=== PATIENT | male | born 1955 | race Caucasian/White ===

== ENCOUNTER 2019-01-08 18:55 | Observation (INO) | payer MEDICARE, BC ==
[2019-01-08] MEDS ORDERED: SODIUM CHLORIDE 0.9% 1,000 ML IV ONE (19:19)
--- NOTE | 2019-01-08 19:27 | ED ---
Recheck HPI - General Stated Complaint: OD Time Seen by Provider: 01/08/19 19:02 Source: RN notes reviewed, old records reviewed - History of Present Illness Initial Comments: This is a 63-year-old male the ER for evaluation. This patient presents today for evaluation regards to pain. Patient has generalized body pain. Patient presents as a transfer patient today. Patient was transferred to us from [facility] for evaluation regarding low blood pressure secondary to opiates. They put him on Narcan drip and sent to ER secondary low blood pressures MD Complaint: other (Evaluation of the tenderness in blood pressure secondary to opiates) -: unknown Returns Today for: other (low BP) Symptoms Since Prior Visit: no new symptoms Associated Symptoms: none - Related Data Home Medications Medication Instructions Recorded Confirmed Acetaminophen [Tylenol] 1,000 mg PO BID 08/29/15 08/31/15 Gabapentin [Neurontin] 1,800 mg PO BID 08/29/15 08/31/15 Insulin Detemir [Levemir Flextouch] 25 units SQ HS 08/29/15 08/31/15 Insulin Lispro [humaLOG] 0 units SQ TID-W/MEALS PRN 08/29/15 08/31/15 Metoprolol Tartrate [Lopressor] 25 mg PO BID 08/29/15 08/31/15 Ondansetron [Zofran] 4 mg PO Q12HR PRN 08/29/15 08/31/15 Ranitidine HCl [Zantac] 150 mg PO BID PRN 08/29/15 08/31/15 Stool Softner 1 tab PO DAILY 08/29/15 08/31/15 oxyCODONE HCL/ACETAMINOPHEN 1 tab PO Q6HR 08/29/15 08/31/15 [Percocet 7.5-325 mg] Atorvastatin Calcium [Lipitor] 80 mg PO HS 08/31/15 08/31/15 Isosorbide Mononitrate ER [Imdur] 30 mg PO DAILY 08/31/15 08/31/15 Allergies Allergy/AdvReac Type Severity Reaction Status Date / Time No Known Allergies Allergy Verified 08/29/15 10:31 Review of Systems ROS Statement: Those systems with pertinent positive or pertinent negative responses have been documented in the HPI. ROS Other: All systems not noted in ROS Statement are negative. Past Medical History Past Medical History: Chest Pain / Angina, Heart Failure, Diabetes Mellitus, Hyperlipidemia, Hypertension, Rheumatoid Arthritis (RA) Additional Past Medical History / Comment(s): SOB, hx intestinal blockage, History of Any Multi-Drug Resistant Organisms: None Reported Past Surgical History: Appendectomy, Joint Replacement, Orthopedic Surgery, Ton sillectomy Additional Past Surgical History / Comment(s): spinal pain stimulater, pain pump implated/later removed, rt knee partial replacement, left shoulder surgery, bone spurs left shoulder, Past Anesthesia/Blood Transfusion Reactions: No Reported Reaction Smoking Status: Former smoker - Past Family History Mother Family Medical History: No Reported History General Exam General appearance: alert, in no apparent distress Head exam: Present: atraumatic, normocephalic, normal inspection Eye exam: Present: normal appearance, PERRL, EOMI. Absent: scleral icterus, conjunctival injection, periorbital swelling ENT exam: Present: normal exam, mucous membranes moist Neck exam: Present: normal inspection. Absent: tenderness, meningismus, lymphadenopathy Respiratory exam: Present: normal lung sounds bilaterally. Absent: respiratory distress, wheezes, rales, rhonchi, stridor Cardiovascular Exam: Present: regular rate, normal rhythm, normal heart sounds. Absent: systolic murmur, diastolic murmur, rubs, gallop, clicks GI/Abdominal exam: Present: soft, normal bowel sounds. Absent: distended, tenderness, guarding, rebound, rigid Extremities exam: Present: normal inspection, full ROM, normal capillary refill. Absent: tenderness, pedal edema, joint swelling, calf tenderness Back exam: Present: normal inspection Neurological exam: Present: alert, oriented X3, CN II-XII intact Psychiatric exam: Present: normal affect, normal mood Skin exam: Present: warm, dry, intact, normal color. Absent: rash Course - Reevaluation(s) Reevaluation #1: 01/08/19 19:24 Medical and transferring paperwork are reviewed Reevaluation #2: 01/08/19 19:24 Patient complaining of generalized pain Medical Decision Making - Medical Decision Making 63 male with unintentional overdose secondary to pain pump, dosage to high. Patient be admitted for monitoring of pain pump dosage and evaluation by anesthesiology Disposition Clinical Impression: Overdose Narrative: Pain Pump Overdose [facility] Condition: Fair Is patient prescribed a controlled substance at d/c from ED?: No Referrals: None,Stated [Primary Care Provider] - 1-2 days
[2019-01-08] MEDS ORDERED: GABAPENTIN 300 MG CAP PO STA (20:44)
[2019-01-08 21:07] LABS: Glucose,Whole Blood 201 mg/dL (75-99)
[2019-01-08 21:16] VITALS: BMI 34.5
[2019-01-08] MEDS ORDERED: LORazepam 1 MG TAB PO PRN (21:17)
[2019-01-08] MEDS ORDERED: MAGNESIUM HYDROXIDE 2,400 MG/10 ML CUP PO PRN (21:17)
[2019-01-08] MEDS ORDERED: ONDANSETRON 4 MG TAB PO PRN (21:17)
--- NOTE | 2019-01-08 21:25 | P.PAINCN ---
History of Present Illness - Reason for Consult Consult date: 01/08/19 - Chief Complaint Intrathecal pump potential overdose. - History of Present Illness 63-year-old male who was a patient of Dr. Monzon. He follows up with him with regards to intrathecal pump that was implanted some years ago. Over the past 4 weeks patient has been in outpatient rehabilitation Center because of lower extremity weakness and difficulty with mobility. His intrathecal pump contains morphine only, and about 1-2 weeks ago it was dry. Someone from Dr. Monzon's office came and filled with saline, than last week he was at the office to have it filled on or Friday. Over the past week has been feeling dizzy and lightheaded. Per his is having lower than normal blood pressure. He's taken to the emergency department and given multiple doses of Narcan. His blood pressure improved after the dosing of Narcan, its unsure exactly how much was given as it was done at a different facility. I was contacted by the emergency room physician while this patient was still at another facility seeing if I would be able to interrogate and manage his pump. He denies any altered mental status, lethargy, diaphoresis, withdrawal symptoms, respiratory depression, constipation, or diarrhea. Pump interrogation was done which showed morphine 25 mg per mL, patient was receiving 1.2 mg/day. This equates to roughly 360 mg oral of morphine. Maps was reviewed, did not show any previous prescriptions in the amount being delivered intrathecally. Past Medical History Past Medical History: Chest Pain / Angina, Heart Failure, Diabetes Mellitus, Hyperlipidemia, Hypertension, Rheumatoid Arthritis (RA) Additional Past Medical History / Comment(s): SOB, hx intestinal blockage, History of Any Multi-Drug Resistant Organisms: None Reported Past Surgical History: Appendectomy, Joint Replacement, Orthopedic Surgery, Tonsillectomy Additional Past Surgical History / Comment(s): spinal pain stimulater, pain pump implated/later removed, rt knee partial replacement, left shoulder surgery, bone spurs left shoulder, Past Anesthesia/Blood Transfusion Reactions: No Reported Reaction Smoking Status: Former smoker - Past Family History Mother Family Medical History: No Reported History Medications and Allergies Home Medications Medication Instructions Recorded Confirmed Type Acetaminophen [Tylenol] 1,000 mg PO Q6H PRN 08/29/15 01/08/19 History Gabapentin [Neurontin] 600 mg PO BID@0700,1900 08/29/15 01/08/19 History Metoprolol Tartrate [Lopressor] 25 mg PO BID@0700,1700 08/29/15 01/08/19 History Ondansetron [Zofran] 4 mg PO Q12HR PRN 08/29/15 01/08/19 History Isosorbide Mononitrate ER [Imdur] 30 mg PO DAILY@0700 08/31/15 01/08/19 History Aspirin EC [Ecotrin Low Dose] 81 mg PO DAILY@0700 01/08/19 01/08/19 History Celecoxib [CeleBREX] 100 mg PO DAILY@0700 01/08/19 01/08/19 History Insulin Lispro [humaLOG Kwikpen] See Protocol SQ ACHS@07,,,01/08/1901/08 History LORazepam [Ativan] 1 mg PO TID PRN 01/08/19 01/08/19 History Lisinopril [Zestril] 5 mg PO DAILY@0700 01/08/19 01/08/19 History Magnesium Hydroxide [Milk of 2,400 mg PO DAILY PRN 01/08/19 01/08/19 History Magnesia] Mirtazapine [Remeron] 15 mg PO HS 01/08/19 01/08/19 History Na Phos,M-B/Na Phos,Di-Ba [Fleet 1 dose RECTAL Q72H PRN 01/08/19 01/08/19 History Adult] Nystatin 100,000 Unit/gm Oint 1 applic TOPICAL BID 01/08/19 01/08/19 History [Mycostatin Oint] Omeprazole 20 mg PO DAILY@0500 01/08/19 01/08/19 History Polyethylene Glycol 3350 17 gm PO DAILY@0700 01/08/19 01/08/19 History Potassium Chloride ER [K-Dur 20] 20 meq PO BID@0700,2100 01/08/19 01/08/19 History cloNIDine [Catapres-TTS] 1 patch TRANSDERM FORREST 01/08/19 01/08/19 History levETIRAcetam [Keppra] 250 mg PO BID@0700,1700 01/08/19 01/08/19 History Allergies Allergy/AdvReac Type Severity Reaction Status Date / Time No Known Allergies Allergy Verified 01/08/19 19:38 Physical Exam Vitals: Vital Signs Temp Pulse Resp BP Pulse Ox 01/08/19 20:51 90 18 133/75 99 01/08/19 20:00 98.1 F 95 20 113/62 99 01/08/19 19:10 98.5 F 88 20 142/80 96 Intake and Output 01/08/19 01/08/19 01/08/19 06:59 14:59 22:59 Output Total 1600 Balance -1600 Output: Urine 1600 Other: Weight 115.666 kg - Constitutional General appearance: morbidly obese - EENT Eyes: PERRLA - Respiratory Respiratory: bilateral: CTA, negative: wheezing - Cardiovascular Rhythm: regular Heart sounds: normal: S1, S2 - Integumentary Integumentary: normal, normal turgor - Psychiatric Psychiatric: A&O x's 3, appropriate affect, intact judgment & insight Assessment and Plan Assessment: Assessment: 1. Possible opioid overdose via intrathecal route. 2. Peripheral neuropathy 3. Lumbar spondylosis 4. Lumbar postlaminectomy syndrome Plan: 1. After interrogating intrathecal pump patient was getting 360 mg of morphine a day (1.2mg/day). Per his history, he has never been prescribed dosages of this amount. 2. Decreased pump to minimal settings of 0.15 mg a day of morphine. Discussed with the ER physician to admit for observation overnight to stop the Narcan infusion that he was getting. Also he will need to be prescribed some oral opiates as an outpatient to avoid significant withdrawal symptoms, also clonidine patches. 3. I advised patient to follow up with Dr. Monzon to adjust his dose. PQRS Measure Charge Sheet PQRS Narrative: Smoking Status Former smoker Blood Pressure 133/75 Pain Intensity 7 Scale Used Numeric (1 - 10) Home Medications: Ambulatory Orders Acetaminophen [Tylenol] 1,000 mg PO Q6H PRN 08/29/15 Gabapentin [Neurontin] 600 mg PO BID@0700,1900 08/29/15 Metoprolol Tartrate [Lopressor] 25 mg PO BID@0700,1700 08/29/15 Ondansetron [Zofran] 4 mg PO Q12HR PRN 08/29/15 Isosorbide Mononitrate ER [Imdur] 30 mg PO DAILY@0700 08/31/15 Aspirin EC [Ecotrin Low Dose] 81 mg PO DAILY@0700 01/08/19 Celecoxib [CeleBREX] 100 mg PO DAILY@0701/08/19 Insulin Lispro [humaLOG Kwikpen] See Protocol SQ ACHS@07,12,17,01/08/19 LORazepam [Ativan] 1 mg PO TID PRN 01/08/19 Lisinopril [Zestril] 5 mg PO DAILY@0701/08/19 Magnesium Hydroxide [Milk of Magnesia] 2,400 mg PO DAILY PRN 01/08/19 Mirtazapine [Remeron] 15 mg PO HS 01/08/19 Na Phos,M-B/Na Phos,Di-Ba [Fleet Adult] 1 dose RECTAL Q72H PRN 01/08/19 Nystatin 100,000 Unit/gm Oint [Mycostatin Oint] 1 applic TOPICAL BID 01/08/19 Omeprazole 20 mg PO DAILY@0500 01/08/19 Polyethylene Glycol 3350 17 gm PO DAILY@0701/08/19 Potassium Chloride ER [K-Dur 20] 20 meq PO BID@0700,2100 01/08/19 cloNIDine [Catapres-TTS] 1 patch TRANSDERM FORREST 01/08/19 levETIRAcetam [Keppra] 250 mg PO BID@0700,1700 01/08/19
[2019-01-08] MEDS ORDERED: MIRTAZAPINE 15 MG TAB PO SCH (21:30)
[2019-01-08] MEDS: INSULIN ASPART (NovoLOG) 100 UNIT/ML VIAL SQ SCH (21:32)
[2019-01-08] MEDS: NYSTATIN 100,000 UNIT/GM OINT 30 GM TUBE TOPICAL SCH (21:56)
[2019-01-08] MEDS: ACETAMINOPHEN TAB 500 MG TAB PO PRN (23:11)
--- NOTE | 2019-01-08 23:28 | P.HPIM ---
History of Present Illness H&P Date: 01/08/19 Chief Complaint: hypotension 63-year-old male with history of chronic pain syndrome status post intrathecal morphine pump Patient was transferred to our facility from [facility]. Patient is currently a retirement resident for rehab post her long hospitalization se condary to sepsis in December 2018. Patient has chronic pain syndrome and has intrathecal pain pump which has been adjusted recently. Patient sees Dr. Monzon as an outpatient. Patient is a very poor historian history is obtained by reviewing medical records and speaking with family SS like since pain pump was adjusted and refilled recently patient has been having low blood pressure readings today he was sent to the hospital due to systolic blood pressure in the 60s patient responded to a dose of Narcan(unknown amount at this time) which helped with his breathing and blood pressure. His neurologist was contacted and recommended that he goes to our facility for evaluation. Patient was evaluated by anesthesia in the ED who found that the pump is set up at 1.2 mg of morphine intrathecally per day this has been adjusted to the lowest setting of 0.15 mg per day patient was admitted for further monitoring overnight Currently patient denies any pain, he reports some discomfort in his lower legs but tolerable. Denies any dizziness lightheadedness chest pain trouble breathing fevers or chills. Review of Systems Pertinent positives as noted in HPI. All other systems were reviewed and are negative Past Medical History Past Medical History: Chest Pain / Angina, Heart Failure, Diabetes Mellitus, Hyperlipidemia, Hypertension, Rheumatoid Arthritis (RA) Additional Past Medical History / Comment(s): SOB, hx intestinal blockage, History of Any Multi-Drug Resistant Organisms: None Reported Past Surgical History: Appendectomy, Joint Replacement, Orthopedic Surgery, Tonsillectomy Additional Past Surgical History / Comment(s): spinal pain stimulater, pain pump implated/later removed, rt knee partial replacement, left shoulder surgery, bone spurs left shoulder, Past Anesthesia/Blood Transfusion Reactions: No Reported Reaction Smoking Status: Former smoker - Past Family History Mother Family Medical History: No Reported History Additional Family Medical History / Comment(s): heart problems Father Additional Family Medical History / Comment(s): parkinsons Medications and Allergies Home Medications Medication Instructions Recorded Confirmed Type Acetaminophen [Tylenol] 1,000 mg PO Q6H PRN 08/29/15 01/08/19 History Gabapentin [Neurontin] 600 mg PO BID@00,1900 08/29/15 01/08/19 History Metoprolol Tartrate [Lopressor] 25 mg PO BID@0700,1700 08/29/15 01/08/19 History Ondansetron [Zofran] 4 mg PO Q12HR PRN 08/29/15 01/08/19 History Isosorbide Mononitrate ER [Imdur] 30 mg PO DAILY@0700 08/31/15 01/08/19 History Aspirin EC [Ecotrin Low Dose] 81 mg PO DAILY@0700 01/08/19 01/08/19 History Celecoxib [CeleBREX] 100 mg PO DAILY@0700 01/08/19 01/08/19 History Insulin Lispro [humaLOG Kwikpen] See Protocol SQ ACHS@07,12,17,01/08/19 01/08/19 History LORazepam [Ativan] 1 mg PO TID PRN 01/08/19 01/08/19 History Lisinopril [Zestril] 5 mg PO DAILY@0700 01/08/19 01/08/19 History Magnesium Hydroxide [Milk of 2,400 mg PO DAILY PRN 01/08/19 01/08/19 History Magnesia] Mirtazapine [Remeron] 15 mg PO HS 01/08/19 01/08/19 History Na Phos,M-B/Na Phos,Di-Ba [Fleet 1 dose RECTAL Q72H PRN 01/08/19 01/08/19 History Adult] Nystatin 100,000 Unit/gm Oint 1 applic TOPICAL BID 01/08/19 01/08/19 History [Mycostatin Oint] Omeprazole 20 mg PO DAILY@0500 01/08/19 01/08/19 History Polyethylene Glycol 3350 17 gm PO DAILY@0700 01/08/19 01/08/19 History Potassium Chloride ER [K-Dur 20] 20 meq PO BID@0700,2100 01/08/19 01/08/19 History cloNIDine [Catapres-TTS] 1 patch TRANSDERM FORREST 01/08/19 01/08/19 History levETIRAcetam [Keppra] 250 mg PO BID@0700,1700 01/08/19 01/08/19 History Allergies Allergy/AdvReac Type Severity Reaction Status Date / Time No Known Allergies Allergy Verified 01/08/19 19:38 Physical Exam Vitals: Vital Signs Temp Pulse Pulse Resp BP BP Pulse Ox 01/08/19 21:12 98.1 F 91 17 99/65 95 01/08/19 21:01 98.6 F 89 16 99/65 94 L 01/08/19 20:51 90 18 133/75 99 01/08/19 20:00 98.1 F 95 20 113/62 99 01/08/19 19:10 98.5 F 88 20 142/80 96 Intake and Output 01/08/19 01/08/19 01/08/19 06:59 14:59 22:59 Output Total 1600 Balance -1600 Output: Urine 1600 Other: Weight 115.666 kg Constitutional: No acute distress, conversant, pleasant Eyes: Anicteric sclerae, moist conjunctiva, no lid-lag Pupils equal round reactive to light ENMT: NC/AT Oropharynx clear, no erythema, exudates Neck: Supple, FROM, no masses, or JVD No carotid bruits No thyromegaly Lungs: Clear to auscultation Clear to percussion Normal respiratory effort, no accessory muscle use Cardiovascular: Heart regular in rate and rhythm, No murmurs, gallops, or rubs No peripheral edema Abdominal: Soft Nontender, no guarding, rebound or rigidity Abdomen moving with respiration Normoactive bowel sounds No hepatomegaly, No splenomegaly No palpable mass No abdominal wall hernia noted Skin: Normal temperature, tone, texture, turgor No induration No subcutaneous nodules No rash, lesions No ulcers Extremities: No digital cyanosis No clubbing Pedal pulses intact and symmetrical Radial pulses intact and symmetrical No calf tenderness Psychiatric: Alert and oriented to person, place and time Appropriate affect fair judgment Neuro Muscles Strength 4/5 in all 4 extremities Sensation to light touch grossly present throughout Cranial nerves II-XII grossly intact No focal sensory deficits Lymphatics: no palpable cervical or supraclavicular , or inguinal lymph nodes Results Labs: Abnormal Lab Results - Last 24 Hours (Table) 01/08/19 Range/Units 21:04 POC Glucose (mg/dL) 201 H (75-99) mg/dL Thrombosis Risk Factor Assmnt - Choose All That Apply Any of the Below Risk Factors Present?: No Other Risk Factors: No Each Risk Factor Represents 2 Points: Age 61-74 years Thrombosis Risk Factor Assessment Total Risk Factor Score: 2 Thrombosis Risk Factor Assessment Level: Very Low Risk Assessment and Plan Assessment: 63-year-old male with chronic pain syndrome patient has intrathecal morphine pump. Admitted under observation with anticipated length of stay less than 48 hours for intrathecal opiate overdose resulting in hypotension symptomatic patient nurse and home resident pain pump has been adjusted by anesthesiology patient admitted for monitoring overnight Plan: Intrathecal opiate overdose resulting in hypotension Chronic pain syndrome status post intrathecal pain pump Pain pump was adjusted by anesthesia, currently at low setting 0.15 mg per day of morphine outpaitnet follow up with neurology monitoring overnight Fall precautions Chronic conditions History of epilepsy continue Keppra History of hypertension continue with home meds Diabetes mellitus insulin sliding scale Difficulty ambulating patient is a retirement resident at this time for rehab DVT prophylaxis heparin subcu 3 times a day Surrogate decision-maker: Patient CODE STATUS full code Discussed with: Patient, ER, RN Anticipated discharge: Less than [address]: Back to retirement A total of 60 minutes was spent on the care of this complex patient more than 50% of the time was spent in counseling and care coordination.
[2019-01-09] MEDS: ACETAMINOPHEN TAB 500 MG TAB PO PRN ×2 (04:07→10:26)
[2019-01-09] MEDS ORDERED: PANTOPRAZOLE 40 MG TABLET PO SCH (05:00)
[2019-01-09 06:32] LABS: African American GFR (CKD) >90 (>60 ml/min/1.73 sqM); Anion Gap 8 mmol/L; Carbon Dioxide 17 mmol/L (22-30); Chloride 109 mmol/L (98-107); Glucose 156 mg/dL (74-99); Sodium 134 mmol/L (137-145)
[2019-01-09 06:38] LABS: Glucose,Whole Blood 169 mg/dL (75-99)
[2019-01-09 06:41] LABS: Blood Urea Nitrogen 33 mg/dL (9-20); Potassium 5.6 mmol/L (3.5-5.1)
[2019-01-09] MEDS ORDERED: ISOSORBIDE MONONITRATE ER 30 MG TAB.ER.24H PO SCH (07:00)
[2019-01-09] MEDS ORDERED: MELOXICAM 7.5 MG TAB PO SCH (07:00)
[2019-01-09] MEDS ORDERED: POTASSIUM CHLORIDE ER 20 MEQ TAB.ER PO SCH (07:00)
[2019-01-09] MEDS ORDERED: levETIRAcetam 250 MG TAB PO SCH (07:00)
[2019-01-09] MEDS ORDERED: METOPROLOL TARTRATE 25 MG TAB PO SCH (07:00)
[2019-01-09] MEDS ORDERED: GABAPENTIN 300 MG CAP PO SCH (07:00)
[2019-01-09] MEDS ORDERED: ASPIRIN 81 MG PO SCH (07:00)
[2019-01-09] MEDS ORDERED: LISINOPRIL 5 MG TAB PO SCH (07:00)
[2019-01-09] MEDS ORDERED: INSULIN ASPART (NovoLOG) 100 UNIT/ML VIAL SQ SCH (07:30)
[2019-01-09] MEDS: INSULIN ASPART (NovoLOG) 100 UNIT/ML VIAL SQ SCH ×2 (07:47→12:10)
[2019-01-09] MEDS: NYSTATIN 100,000 UNIT/GM OINT 30 GM TUBE TOPICAL SCH (07:48)
[2019-01-09] MEDS ORDERED: HEPARIN SODIUM,PORCINE 5,000 UNIT/ML 1 ML VIAL SQ SCH (08:00)
[2019-01-09 11:30] LABS: Glucose,Whole Blood 189 mg/dL (75-99)
[2019-01-09 12:14] VITALS: BP 88/52; PULSE 69; RESP 18; TEMP 98.4
--- NOTE | 2019-01-09 14:06 | P.DS ---
Providers Date of admission: 01/08/19 19:19 Expected date of discharge: 01/09/19 Attending physician: Kaiser Wheat MD Consults: 01/08/19 19:19 Consult Physician Routine Consulting Provider: Avel Hoyos Consult Reason/Comments: pain Do you want consulting provider notified?: Yes Primary care physician: [facility] Course: 63-year-old male with history of chronic pain syndrome status post intrathecal morphine pump. Patient was transferred to our facility from [facility]. Patient is currently a penitentiary resident for rehab post his long hospitalization se condary to sepsis in December 2018. Patient has chronic pain syndrome and has intrathecal pain pump which has been adjusted recently. Patient sees Dr. Monzon as an outpatient. Pain pump was adjusted and refilled recently patient has been having low blood pressure readings today he was sent to the hospital due to systolic blood pressure in the 60s. Patient responded to a dose of Narcan (unknown amount at this time) which helped with his breathing and blood pressure. His neurologist was contacted and recommended that he goes to our facility for evaluation. Patient was evaluated in the ED by anesthesia and the intrathecal pump was interrogated, 1.2 mg per day. The settings were readjusted to the lowest dose of 0.15 mg per day. Patient was seen and examined prior to discharge. No acute events overnight. Patient reports no dizziness, chest pain, shortness of breath or palpitations. States that he would like to go back to his ECF. General: [non toxic], [no distress], [appears at stated age] Derm: [warm], [dry] Head: [atraumatic], [normocephalic], [symmetric] Eyes: [EOMI], [no lid lag], [anicteric sclera] Mouth: [no lip lesion], [mucus membranes moist] Cardiovascular: [S1S2 reg], [no murmur], [positive DP pulse bilateral] Lungs: [CTA bilateral], [no rhonchi, no rales] , [no accessory muscle use] Abdominal: [soft], [ nontender to palpation], [no guarding], [no appreciable organomegaly] Ext: [no gross muscle atrophy], [no edema], [no contractures] Neuro: [no focal neuro deficits] Psych: [Alert], [oriented], [appropriate affect] Intrathecal opiate overdose resulting in hypotension Chronic pain syndrome status post intrathecal pain pump Chronic conditions: History of epilepsy, hypertension, diabetes mellitus Blood pressure is improved. Intrathecal pain pump interrogated by anesthesia in the ED, dose readjusted to the lowest possible dose of 0.15 mg per day. Patient will need to follow-up with neurology Dr. Monzon in the outpatient setting for readjustment. Patient would like to go back to [facility] and we will DC the patient today. Patient Condition at Discharge: Stable Plan - Discharge Summary Discharge Rx Participant: No New Discharge Prescriptions: Continue Acetaminophen [Tylenol] 1,000 mg PO Q6H PRN PRN Reason: Pain Gabapentin [Neurontin] 600 mg PO BID@0700,1900 Ondansetron [Zofran] 4 mg PO Q12HR PRN PRN Reason: Nausea Metoprolol Tartrate [Lopressor] 25 mg PO BID@0700,1700 Isosorbide Mononitrate ER [Imdur] 30 mg PO DAILY@0700 Na Phos,M-B/Na Phos,Di-Ba [Fleet Adult] 1 dose RECTAL Q72H PRN PRN Reason: Constipation Magnesium Hydroxide [Milk of Magnesia] 2,400 mg PO DAILY PRN PRN Reason: Constipation LORazepam [Ativan] 1 mg PO TID PRN PRN Reason: Anxiety Insulin Lispro [humaLOG Kwikpen] See Protocol SQ ACHS@07,12,17,21 Nystatin 100,000 Unit/gm Oint [Mycostatin Oint] 1 applic TOPICAL BID levETIRAcetam [Keppra] 250 mg PO BID@0700,1700 Mirtazapine [Remeron] 15 mg PO HS Polyethylene Glycol 3350 17 gm PO DAILY@0700 Omeprazole 20 mg PO DAILY@0500 Lisinopril [Zestril] 5 mg PO DAILY@0700 Celecoxib [CeleBREX] 100 mg PO DAILY@0700 cloNIDine [Catapres-TTS] 1 patch TRANSDERM FORREST Aspirin EC [Ecotrin Low Dose] 81 mg PO DAILY@0700 Discontinued Potassium Chloride ER [K-Dur 20] 20 meq PO BID@0700,2100 Discharge Medication List Acetaminophen [Tylenol] 1,000 mg PO Q6H PRN 08/29/15 [History] Gabapentin [Neurontin] 600 mg PO BID@0700,1900 08/29/15 [History] Metoprolol Tartrate [Lopressor] 25 mg PO BID@0700,1700 08/29/15 [History] Ondansetron [Zofran] 4 mg PO Q12HR PRN 08/29/15 [History] Isosorbide Mononitrate ER [Imdur] 30 mg PO DAILY@0700 08/31/15 [History] Aspirin EC [Ecotrin Low Dose] 81 mg PO DAILY@0700 01/08/19 [History] Celecoxib [CeleBREX] 100 mg PO DAILY@0700 01/08/19 [History] Insulin Lispro [humaLOG Kwikpen] See Protocol SQ ACHS@07,12,17,21 01/08/19 [History] LORazepam [Ativan] 1 mg PO TID PRN 01/08/19 [History] Lisinopril [Zestril] 5 mg PO DAILY@0700 01/08/19 [History] Magnesium Hydroxide [Milk of Magnesia] 2,400 mg PO DAILY PRN 01/08/19 [History] Mirtazapine [Remeron] 15 mg PO HS 01/08/19 [History] Na Phos,M-B/Na Phos,Di-Ba [Fleet Adult] 1 dose RECTAL Q72H PRN 01/08/19 [Histor y] Nystatin 100,000 Unit/gm Oint [Mycostatin Oint] 1 applic TOPICAL BID 01/08/19 [History] Omeprazole 20 mg PO DAILY@0500 01/08/19 [History] Polyethylene Glycol 3350 17 gm PO DAILY@0701/08/19 [History] cloNIDine [Catapres-TTS] 1 patch TRANSDERM FORREST 01/08/19 [History] levETIRAcetam [Keppra] 250 mg PO BID@0700,1700 01/08/19 [History] Follow up Appointment(s)/Referral(s): None,Stated [REFERRING] - 1-2 days Franca Monzon MD [Medical Doctor] - 1 Week Ambulatory/Diagnostic Orders: Basic Metabolic Panel [LAB.AMB] Time Frame: 1 Day, Location: None Selected Activity/Diet/Wound Care/Special Instructions: Diet: Heart healthy Follow-up PCP within 1-2 days of discharge. Follow-up with neurology Dr. Monzon within 1 week of discharge. Discharge Disposition: TRANSFER TO SNF/ECF
[2019-01-10] MEDS ORDERED: cloNIDine 0.2 MG/24HR PATCH TRANSDERM SCH (09:00)
== END 2019-01-09 15:34 ==
LOC: EC 18:55 → 1SOBS 19:19
PROVIDERS: ADMIT Internal Medicine; ATTEND Internal Medicine
DX: T40.601A Poisoning by unspecified narcotics, accidental (unintentional), initial encounter (principal); I95.2 Hypotension due to drugs; G89.4 Chronic pain syndrome; R26.2 Difficulty in walking, not elsewhere classified; I11.0 Hypertensive heart disease with heart failure; I50.9 Heart failure, unspecified; E11.42 Type 2 diabetes mellitus with diabetic polyneuropathy; G40.909 Epilepsy, unspecified, not intractable, without status epilepticus; M06.9 Rheumatoid arthritis, unspecified; E78.5 Hyperlipidemia, unspecified; Z86.19 Personal history of other infectious and parasitic diseases; Z87.891 Personal history of nicotine dependence; Z97.8 Presence of other specified devices; E66.01 Morbid (severe) obesity due to excess calories; Z68.34 Body mass index [BMI] 34.0-34.9, adult; M47.9 Spondylosis, unspecified; M96.1 Postlaminectomy syndrome, not elsewhere classified; Z79.891 Long term (current) use of opiate analgesic; Z79.899 Other long term (current) drug therapy; Z79.1 Long term (current) use of non-steroidal anti-inflammatories (NSAID); Z79.4 Long term (current) use of insulin; Z79.82 Long term (current) use of aspirin; Z82.0 Family history of epilepsy and other diseases of the nervous system
CPT/HCPCS: 96372; 99285; 80048; 84132; G0378 ×2; J1644

== ENCOUNTER → 2020-11-17 | Outpatient (CLI) | payer MEDICARE, BC ==
[2020-11-17 16:07] LABS: HCT 41.4 % (39.6-50.0); HGB 13.1 g/dL (13.0-17.0); MCH 34.5 pg (27.0-32.0); MCHC 31.6 g/dL (32.0-37.0); MCV 108.9 fL (80.0-97.0); Mean Platelet Volume 9.5 fL (9.5-12.2); Platelet Count 130 X 10*3/uL (140-440); RDW 13.3 % (11.5-14.5); WBC 3.97 X 10*3/uL (4.50-10.00)
[2020-11-17 16:15] LABS: % Iron Saturation 28.38 (15.00-50.00); African American GFR (CKD) 123.1 (60.0-200.0); Albumin 4.1 g/dL (3.80-4.90); Albumin/Globulin Ratio 2.28 (1.60-3.17); Anion Gap 12.5 mmol/L (4.00-12.00); BUN/Creat Ratio 28.33 Ratio (12.00-20.00); Calcium 8.7 mg/dL (8.7-10.3); Carbon Dioxide 26.5 mmol/L (21.6-31.8); Globulin 1.8 g/dL (1.6-3.3); Non-African American GFR(CKD) 106.3 (60.0-200.0); Potassium 4.6 mmol/L (3.5-5.5); Total Bilirubin 0.4 mg/dL (0.2-1.2); Total Protein 5.9 g/dL (6.2-8.2)
[2020-11-17 16:23] LABS: Ferritin 89.4 ng/mL (22.0-322.0)
[2020-11-17 17:46] LABS: Hemoglobin A1C 8.1 % (4.0-6.0)
== END | disposition home or self-care (01) ==
LOC: LABWHC1 08:10
PROVIDERS: ATTEND Psychiatry & Neurology Pain Medicine
DX: R53.83 Other fatigue (principal)
CPT/HCPCS: 36415; 80053; 82550; 82728; 83036; 83540; 83550; 84439; 84443; 84466; 84481; 85027

== ENCOUNTER → 2020-11-29 | Outpatient (CLI) | payer MEDICARE, BC ==
--- NOTE | 2020-11-29 10:53 | CT ---
EXAMINATION TYPE: CT lumbar spine wo con DATE OF EXAM: 11/29/2020 COMPARISON: None HISTORY: 65-year-old male M54.5, lumbar spine pain, unavailable. TECHNIQUE: Contiguous axial scanning of the lumbar spine without IV contrast. Coronal and sagittal re constructions performed. CT DLP: 1928.50 mGycm Automated exposure control for dose reduction was used. FINDINGS: Cysts within the kidneys measuring up to 3.8 cm on the right. Mild to moderate macroscopic calcificat ions infrarenal abdominal aorta and common iliac arteries. There appears to be a component of congenital spinal canal stenosis with AP canal dimension of 1.1 cm . Moderate to advanced disc/endplate degenerative changes present with narrowing and desiccated discs a t multiple levels as well as disc bulging, ligamentum flavum thickening, and facet arthropathy. Generator device right posterior lower back. Its lead extends superiorly beyond the [id number]. There is also a thin lead entering the spinal canal through the L3-L4 intralaminar space and tip term inating at the T11 level. Trace grade 1 retrolisthesis at L4-L5. Remaining alignment is maintained. Vertebral body heights are preserved. Suspect moderate to severe spinal canal stenoses at L1-L2, L2-L3, L3-L4 secondary to the superimposed disc bulges. Probable moderate narrowing of the spinal canal at L4-L5 and mild at L5-S1. On the left, moderate to severe neural foraminal stenosis at L2-L3 and L5-S1. Moderate at L3-L4 and L 4-L5. On the right, moderate to severe neural foraminal stenosis at L3-L4 and moderate at additional levels . IMPRESSION: 1. 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 DEGENERATIVE GRADE 1 RETROLISTHESIS L4-L5. 2. THERE MAY BE MODERATE TO SEVERE SPINAL CANAL STENOSES AT L1-L2, L2-L3, L3-L4. POSSIBLE MODERATE AT L4-L5 AND MILD AT L5-S1. 3. VARIABLE BILATERAL NEURAL FORAMINAL STENOSES OUTLINED ABOVE. 4. A THIN STIMULATOR LEAD ENTERING THE L3-L4 INTERLAMINAR SPACE WITH TIP TERMINATING AT THE T11 LEVEL AND THE SPINAL CANAL.
== END | disposition home or self-care (01) ==
LOC: RADCTMAIN 09:05
PROVIDERS: ATTEND Psychiatry & Neurology Neurology
DX: M48.061 Spinal stenosis, lumbar region without neurogenic claudication (principal); M51.36 Other intervertebral disc degeneration, lumbar region; M99.73 Connective tissue and disc stenosis of intervertebral foramina of lumbar region; M43.16 Spondylolisthesis, lumbar region
CPT/HCPCS: 72131

== ENCOUNTER → 2021-12-06 | Outpatient (CLI) | payer MEDICARE, BC ==
[2021-12-06 10:58] LABS: African American GFR (CKD) >90 (>60 ml/min/1.73 sqM); Blood Urea Nitrogen 16 mg/dL (9-20); Non-African American GFR(CKD) >90 (>60 ml/min/1.73 sqM)
--- NOTE | 2021-12-06 13:15 | CT ---
EXAMINATION TYPE: CT urogram wo/w con DATE OF EXAM: 12/06/2021 COMPARISON: 08/14/2010 HISTORY: 66-year-old male R31.0, Gross hematuria, abnormality of kidneys TECHNIQUE: Contiguous axial scanning of the abdomen and pelvis performed without and with IV Contrast , patient injected with 100 mL of Isovue 370. Delayed images through the kidneys and bladder were obt ained. Coronal/sagittal reconstructions performed. Reconstructions generated on a dedicated workstati on. CT DLP: 5353 mGycm Automated exposure control for dose reduction was used. FINDINGS: Heart limits of normal in size. RCA coronary calcifications are noted. Strandy scarring or atelectasi s in the lower lungs. Mild emphysematous change. No pleural effusion. No focal liver lesion or biliary ductal dilatation. Portal venous system is patent. Phrygian cap of the gallbladder. Gallbladder is borderline distended but without any wall thickening or surrounding inflammation. Small layering calculi/gravel is present Some punctate calcific densities along the expected course of the bile duct, refer to axial image 33 and 34. Possible nonobstructive choledocholithiasis. Cortical defects within both kidneys are new, possible sequela of vascular or infectious insults, new from 2010. Enlarging right renal cortical cysts measuring up to 4.8 cm versus 2.2 cm. This largest c yst is at the lateral upper pole and may have mild complexity with a thin internal septation. 8 mm nonobstructive right renal calculus. No hydronephrosis. Symmetric uptake and excretion of contrast from both kidneys. No gross abnormality of the bilateral ureters. Moderate episodic calcifications abdominal aorta and common iliac arteries. There appears to be some type of scarring along the superficial fascia of the right periumbilical ant erior abdominal wall. Small fatty umbilical hernia measuring 2.6 cm wide. Generator device projecting along the anterior left lower quadrant and also right. Median posterior b ack. Spinal stenotic later extending up into the thoracic spinal canal. No dilated small bowel, free fluid, or free air. No mesenteric or retroperitoneal lymphadenopathy. Moderate stool burden. Redundant sigmoid colon. Mild sigmoid diverticulosis. No pericolonic inflammat ory change. Pelvic phleboliths. Patulous left inguinal canal. Mild circumferential bladder wall thickening can be correlated clinically. Prostate gland is not enlarged at 3.6 cm wide. No abnormal fluid collection i n the pelvis or pelvic lymphadenopathy. Bones: Mild degenerative change of the hips. Moderate to advanced degenerative disc disease throughou t the lumbar spine along with hypertrophic facet arthropathy. There may be underlying multilevel spin al canal stenoses. IMPRESSION: 1. AN 8 MM NONOBSTRUCTIVE RIGHT RENAL CALCULUS. 2. NUMEROUS BENIGN RIGHT RENAL CYSTS HAVING INCREASED IN SIZE FROM 2011. LARGEST MEASURES 4.8 CM VERS US 2.2 CM, PREVIOUSLY. ALSO, THIS LARGEST CYST LOCATED AT THE LATERAL UPPER POLE MAY HAVE MILD COMPLE XITY WITH A THIN INTERNAL SEPTATION (BOSNIAK CATEGORY 2). 3. NO HYDRONEPHROSIS. NO SUSPICIOUS FILLING DEFECT ALONG EITHER RENAL COLLECTING SYSTEM. 4. A FEW CORTICAL DEFECTS WITHIN BOTH KIDNEYS ARE NEW FROM 2011 AND SUGGESTS INTERVAL VASCULAR OR INF ECTIOUS INSULTS. 5. MILD CIRCUMFERENTIAL BLADDER WALL THICKENING. CORRELATE TO EXCLUDE CYSTITIS. 6. PUNCTATE CALCIFICATIONS PROJECTING ALONG THE EXPECTED COURSE OF THE BILE DUCT. CORRELATE FOR POSSI BLE NONOBSTRUCTIVE CHOLEDOCHOLITHIASIS. THERE IS ADDITIONAL LAYERING CALCULI/GRAVEL IN THE GALLBLADDE R. 7. MODERATE STOOL BURDEN. MILD SIGMOID DIVERTICULOSIS.
== END | disposition home or self-care (01) ==
LOC: RADCTMAIN 10:00
PROVIDERS: ATTEND Urology
DX: N20.0 Calculus of kidney (principal); N28.1 Cyst of kidney, acquired; K57.30 Diverticulosis of large intestine without perforation or abscess without bleeding; N32.89 Other specified disorders of bladder; K80.20 Calculus of gallbladder without cholecystitis without obstruction
CPT/HCPCS: 82565; 84520; 74178; 36415; 74400; Q9967

== ENCOUNTER → 2023-04-25 | Outpatient (CLI) | payer MEDICARE, BC ==
--- NOTE | 2023-04-25 10:59 | FL ---
EXAMINATION TYPE: FL sniff test without CXR DATE OF EXAM: 04/25/2023 COMPARISON: NONE HISTORY: Shortness of breath TECHNIQUE: Fluoroscopic sniff test FINDINGS: There is normal paradoxical motion of the bilateral hemidiaphragms. A total of 12 seconds o f fluoroscopic time was utilized during the procedure and 1 spot images was acquired. Total dose are a product (DAP) in uGy*m?, mGy*cm? (or similar): None provided. IMPRESSION: 1. Normal sniff test.
== END | disposition home or self-care (01) ==
LOC: RADUSWWP 09:54
PROVIDERS: ATTEND Internal Medicine
DX: J98.6 Disorders of diaphragm (principal); R06.09 Other forms of dyspnea; R06.02 Shortness of breath
CPT/HCPCS: 71250; 76000

== ENCOUNTER 2024-05-21 09:31 | Day surgery (SDC) | payer MEDICARE, BC ==
[2024-05-19 12:11] VITALS: BMI 38.5
[2024-05-21] MEDS: IV FLUID CONTINUATION 1,000 ML IV ONE (10:46)
[2024-05-21] MEDS: LACTATED RINGERS 1,000 ML IV SCH (10:49)
[2024-05-21] MEDS: LEVOFLOXACIN 500MG-D5W PMX 500 MG in DEXTROSE/WATER 1 100ML.BAG IVPB ONE (10:49)
[2024-05-21] MEDS: INDOMETHACIN 100 MG SUPPOSITORY RECTAL ONE (10:49)
[2024-05-21 11:07] LABS: Basophils % (A) 0 %; Eosinophils # (A) 0.1 k/uL (0-0.7); Eosinophils % (A) 2 %; HGB 12.2 gm/dL (13.0-17.5); Hypochromasia Slight; Lymphocytes # (A) 0.9 k/uL (1.0-4.8); Lymphocytes % (A) 16 %; MCH 34.4 pg (25.0-35.0); MCV 107.5 fL (80.0-100.0); Macrocytosis Moderate; Mean Platelet Volume 6.8; Monocytes # (A) 0.3 k/uL (0-1.0); Monocytes % (A) 5 %; Neutrophils % (A) 75 %; Platelet Count 144 k/uL (150-450); RBC 3.54 m/uL (4.30-5.90); RDW 13.5 % (11.5-15.5); WBC 5.4 k/uL (3.8-10.6)
[2024-05-21 11:15] LABS: INR 1.1 (<1.2); Prothrombin Time 11.9 sec (10.0-12.5)
[2024-05-21 11:21] LABS: Glucose,Whole Blood 134 mg/dL (70-110)
[2024-05-21 11:35] LABS: ALT 28 U/L (4-49); African American GFR (CKD) >90 (>60 ml/min/1.73 sqM); Albumin 3.6 g/dL (3.5-5.0); Anion Gap 4 mmol/L; Blood Urea Nitrogen 11 mg/dL (9-20); Calcium 8.5 mg/dL (8.4-10.2); Carbon Dioxide 28 mmol/L (22-30); Chloride 105 mmol/L (98-107); Glucose 130 mg/dL (74-99); Non-African American GFR(CKD) >90 (>60 ml/min/1.73 sqM); Sodium 137 mmol/L (137-145); Total Bilirubin 0.6 mg/dL (0.2-1.3)
[2024-05-21 11:43] LABS: AST 33 U/L (17-59); Alkaline Phosphatase 82 U/L (38-126); Potassium 4.7 mmol/L (3.5-5.1)
[2024-05-21] MEDS ORDERED: ONDANSETRON 4 MG/2 ML VIAL ONE (11:47)
[2024-05-21] MEDS ORDERED: SUCCINYLCHOLINE CHLORIDE 200 MG/10 ML VIAL IV ONE (11:47)
[2024-05-21] MEDS ORDERED: PROPOFOL 10 MG/ML 20 ML VIAL IV ONE (11:47)
[2024-05-21] MEDS ORDERED: LIDOCAINE 1% INJ 10MG/ML (20 ML MDV) ONE (11:47)
[2024-05-21] MEDS: IOPAMIDOL-300 50ML BTL INJ ONE (12:30)
--- NOTE | 2024-05-21 12:32 | P.PCN ---
Date of Procedure: 05/21/24 Procedure(s) Performed: Brief history: Patient is a 69 year-old pleasant white male scheduled for an ERCP as part of evaluation of abdominal pain and on and off for the last 6 months duration. He went to the emergency room had a CT of the abdomen pelvis done that showed slightly dilated common bile duct with 3 small stones measuring 4 mm in size in the distal common bile duct. He also had cholelithiasis. He is not scheduled for an ERCP to evaluate further. Procedure performed: ERCP with biliary sphincterotomy and balloon stone extraction Preoperative diagnoses: Epigastric pain and recent CAT scan showing distal common bile duct stones IV sedation per anesthesia: Procedure: After informed consent was obtained from the patient and after the risks benefits and complications including bleeding perforation and pancreatitis explained in detail the patient was brought into the endoscopy unit. The patient was placed in prone position and IV conscious sedation was administered by anesthesia under continuous monitoring. The Olympus side-viewing duodenoscope was then inserted into the mouth and esophagus intubated without any difficulty. The scope was gradually advanced into the stomach and duodenum. The major papilla was identified without any difficulty. Additional cannulation resulted in opacification of the common bile duct. The common bile duct measured about 5 mm in diameter and there were 3 small filling defects noted in the distal common bile duct. At this time the catheter was exchanged over a guidewire and a biliary sphincterotomy was performed at 11 o'clock position and was extended to 1 cm. Following this an 8 mm balloon catheter was passed over the guidewire into the proximal CBD and gently inflated and withdrawn and 3 small stones were extracted without any difficulty. This maneuver was repeated 3-4 more times. Following this an occlusion cholangiogram was performed and no other filling defects were noted. The pancreatic duct was intentionally not cannulated. Patient tolerated the procedure well. Impression: Normal-appearing common bile duct with 3 small filling defects in the distal CBD s/p biliary sphincterotomy and balloon stone extraction and 3 small stones were extracted measuring about 3 mm in size Pancreatic duct intentionally not related Recommendations: The findings of this examination were discussed with the patient as well as a family. He will be observed for 2 hours and if he is asymptomatic he will be discharged home with outpatient follow-up and treatments.
[2024-05-21 12:48] VITALS: TEMP 97
[2024-05-21 12:58] LABS: Glucose,Whole Blood 133 mg/dL (70-110)
--- NOTE | 2024-05-21 13:02 | FL ---
Intraoperative/procedural fluoroscopic services were provided for ERCP. No obvious filling defect emily ntified within the submitted images. Total fluoroscopy time is 104.3 seconds with a total of 3 submit vilma images to PACS. Total DAP 1.08 mGym2. Please see the operative note for further details. [facility], , 05/21/2024 1:00 PM
[2024-05-21 13:30] VITALS: RESP 20
[2024-05-21] MEDS: oxyCODONE ER 10 MG TAB.ER.12H PO STA (13:43)
[2024-05-21 14:15] VITALS: BP 139/76; PULSE 80
== END 2024-05-21 14:32 | disposition home or self-care (01) ==
LOC: ORWHC2ENDO 09:31
PROVIDERS: ATTEND Internal Medicine Gastroenterology
DX: K80.50 Calculus of bile duct without cholangitis or cholecystitis without obstruction (principal); E78.5 Hyperlipidemia, unspecified; I11.0 Hypertensive heart disease with heart failure; I50.22 Chronic systolic (congestive) heart failure; E11.9 Type 2 diabetes mellitus without complications; Z79.84 Long term (current) use of oral hypoglycemic drugs; Z79.899 Other long term (current) drug therapy
CPT/HCPCS: 80053; 85025; 85610; 74330; 43264; 43262; J0330; J2405; J1956; J2003; J2704